=== PATIENT | male | born 1995 | race Caucasian/White ===

== ENCOUNTER 2020-08-16 13:51 | Emergency (ER) | payer SELFPAY ==
[2020-08-16] VITALS (11 sets, daily range): BP systolic 108–137; BP diastolic 55–92; PULSE 70–137; RESP 12–25; TEMP 36.8; O2SAT 94–99; BMI 36.9; BMI 32.8
--- NOTE | 2020-08-16 13:53 | XR_ITS ---
PROCEDURE: XR CHEST PORTABLE CLINICAL HISTORY: cough COMPARISON: No exams were available for comparison FINDINGS: The cardiomediastinal silhouette and pulmonary vascularity are within normal limits. The lungs are clear without infiltrates, suspicious nodules, or pleural effusions. No acute bony abnormalities. IMPRESSION: No acute findings. Dictated by: John Baldwin MD 08/16/2020 14:18 John Baldwin MD in [facility] 08/16/2020 14:18
--- NOTE | 2020-08-16 14:23 | PC.NURSE ---
Restraints removed at this time pt is laying in bed, given warm blankets, lights turned down for comfort. Pt mother at BS will continue to monitor
[2020-08-16 14:25] LABS: Chloride 104 mmol/L (98-107); Potassium 3.8 mmoL/L (3.5-5.1); Sodium 140 mmol/L (136-145)
[2020-08-16 14:27] LABS: Alanine Aminotransferase 60 U/L (12-78); Aspartate Amino Transferase 46 U/L (17-59); Blood Urea Nitrogen 8 mg/dl (9-20); Creatinine Clearance Estimated 166 mL/min (50-200); Estimated Glomerular Filt Rate 101 ml/min (>60); GFR (African American) 122 ML/MIN (>60)
[2020-08-16 14:28] LABS: Albumin Level 4.6 g/dl (3.5-5.0); Albumin/Globulin Ratio 1.4 (1.1-1.8); Alkaline Phosphatase 68 U/L (38-126); Anion Gap 13.8 mEq/L (5-15); Bilirubin,Total 0.8 mg/dl (0.2-1.3); Calcium 8.8 mg/dl (8.4-10.2); Carbon Dioxide 26 mmol/L (22.0-30.0); Globulin 3.3 g/dL (1.3-3.2); Glucose 97 mg/dl (74-100); Total Protein,Serum 7.9 g/dl (6.3-8.2)
[2020-08-16 14:29] LABS: Basophils # 0.1 K/mm3 (0-0.2); Basophils % 0.5 % (0.1-2.0); Eosinophils # 0.1 K/mm3 (0.0-0.4); Eosinophils % 1.5 % (0.1-12.0); Ethyl Alcohol < 10 mg/dl (0-10); Hematocrit 40.9 % (42.0-52.0); Hemoglobin 13.9 g/dL (14.1-18.0); Lymphocytes # 2.8 K/mm3 (0.7-4.5); Lymphocytes % 30.4 % (10-50); Mean Corpuscular Hemoglobin 29.2 pg (27.0-31.2); Mean Corpuscular Volume 85.9 fl (80-94); Mean Platelet Volume 8.5 fl (7.4-10.4); Monocytes # 0.5 K/mm3 (0.1-1.0); Monocytes % 5.1 % (1.7-9.3); Neutrophils # 5.7 K/mm3 (1.8-7.8); Neutrophils % 62.5 % (37.0-80.0); Platelet Count 367 K/mm3 (142-424); Red Blood Count 4.76 M/mm3 (4.60-6.20); Red Cell Distribution Width 13.9 % (11.5-17.5)
--- NOTE | 2020-08-16 14:30 | HMH.EDOD ---
ED Disposition Clinical Impression: Substance abuse Disposition: Home, Self-Care Condition on Discharge: Good Instructions: DI for Drug Overdose in Adults Referrals: Provider,MD Claudia [Primary Care Provider] - Shayna Laws MD [Referring] - - Critical Care Critical Care Time: No Attestation: On 08/16/20, the high probability of a clinically significant, sudden or life threatening deterioration of the following system(s) required my full and direct attention, intervention and personal management. The time I documented below is in addition to time spent performing reported procedures but includes the following listed in this critical care notation. Medical Decision Making - Medical Records Medical records reviewed: Yes: I reviewed the patient's medical records. - Gui Inquiry Pt receiving controlled substance: Yes Gui was queried for this patient: No Reason not queried -: Emergent pt cond-no time Risks and benefits of using a controlled substance: were discussed with pt by me Vital Signs: 08/16/20 13:51 08/16/20 14:08 08/16/20 14:30 Pulse Rate 128 H Pulse Rate [Apical] 137 H Respiratory Rate 16 24 25 H Blood Pressure 137/81 131/92 H Blood Pressure [Right Arm] 136/80 Blood Pressure Mean 98 100 Blood Pressure Mean [Right Arm] 98 Blood Pressure Source [Right Arm] Automatic Cuff Blood Pressure Position [Right Arm] Sitting 02 Sat by Pulse Oximetry 98 99 Oxygen Delivery Method Room Air 08/16/20 15:00 08/16/20 15:30 08/16/20 16:01 Pulse Rate Pulse Rate [Apical] Respiratory Rate 18 12 16 Blood Pressure 126/71 123/72 108/64 L Blood Pressure [Right Arm] Blood Pressure Mean 89 84 76 Blood Pressure Mean [Right Arm] Blood Pressure Source [Right Arm] Blood Pressure Position [Right Arm] 02 Sat by Pulse Oximetry Oxygen Delivery Method 08/16/20 16:30 08/16/20 17:00 08/16/20 18:18 Pulse Rate 100 H 98 H 93 H Pulse Rate [Apical] Respiratory Rate Blood Pressure 113/57 L 110/55 L 108/69 L Blood Pressure [Right Arm] Blood Pressure Mean 69 72 79 Blood Pressure Mean [Right Arm] Blood Pressure Source [Right Arm] Blood Pressure Position [Right Arm] 02 Sat by Pulse Oximetry 94 L 94 L 95 Oxygen Delivery Method 08/16/20 18:30 Pulse Rate 85 Pulse Rate [Apical] Respiratory Rate Blood Pressure 114/83 Blood Pressure [Right Arm] Blood Pressure Mean 93 Blood Pressure Mean [Right Arm] Blood Pressure Source [Right Arm] Blood Pressure Position [Right Arm] 02 Sat by Pulse Oximetry 96 Oxygen Delivery Method - Lab Data Lab Results 08/16/20 13:55: WBC 9.0, RBC 4.76, Hgb 13.9 L, Hct 40.9 L, MCV 85.9, MCH 29.2, MCHC 34.0, RDW 13.9, Plt Count 367, MPV 8.5, Neut % (Auto) 62.5, Lymph % (Auto) 30.4, [place] % (Auto) 5.1, Eos % (Auto) 1.5, Baso % (Auto) 0.5, Neut # (Auto) 5.7, Lymph # (Auto) 2.8, [place] # (Auto) 0.5, Eos # (Auto) 0.1, Baso # (Auto) 0.1 08/16/20 13:55: Sodium 140, Potassium 3.8, Chloride 104, Carbon Dioxide 26, Anion Gap 13.8, BUN 8 L, Creatinine 0.90, Estimated Creat Clear 166, Estimated GFR 101, Est GFR ( Amer) 122, Glucose 97, Calcium 8.8, Total Bilirubin 0.8, AST 46, ALT 60, Alkaline Phosphatase 68, Total Protein 7.9, Albumin 4.6, Globulin 3.3 H, Albumin/Globulin Ratio 1.4 08/16/20 13:55: Plasma/Serum Alcohol < 10 Result diagrams: 08/16/20 13:55 08/16/20 13:55 Orders (Tests/Meds): ED MEDICATIONS Discontinued Medications Generic Name Dose Route Start Last Admin Trade Name Freq PRN Reason Stop Dose Admin Sodium Chloride 1,000 mls @ 999 mls/hr 08/16/20 14:00 08/16/20 14:00 Sod Chlor 0.9% 1000ml Bag IV 08/16/20 15:00 999 mls/hr .Q1H1M MICHI Administration Lorazepam 2 mg 08/16/20 13:54 08/16/20 13:51 Lorazepam 2mg/Ml Vial IM 08/16/20 13:55 2 mg ONCE ONE Administration Ondansetron HCl 4 mg 08/16/20 13:53 08/16/20 14:00 Ondansetron 4mg/2ml Vial IV 08/16/20 13:54 4 mg ONCE ONE Adm
--- NOTE | 2020-08-16 16:26 | PC.NURSE ---
pt sleeping, pt mother remains at BS
--- NOTE | 2020-08-16 17:28 | PC.NURSE ---
attempted to wake pt up at this time, pt will arouse but will not wake up enough to sit up in bed. Notified ER MD will continue to monitor
== END 2020-08-16 19:11 | disposition home or self-care (01) ==
PROVIDERS: Emergency Provider Emergency Medicine
DX: T50.991A Poisoning by other drugs, medicaments and biological substances, accidental (unintentional), initial encounter (principal); Y92.009 Unspecified place in unspecified non-institutional (private) residence as the place of occurrence of the external cause; F17.210 Nicotine dependence, cigarettes, uncomplicated
CPT/HCPCS: 71045; 80053; 85025; 96365; 96372; 96375; 99283; J2405

== ENCOUNTER 2020-12-02 04:15 | Emergency (ER) | payer SELFPAY ==
[2020-12-02 04:17] VITALS: BP 166/55; PULSE 91; RESP 16; TEMP 36.9; O2SAT 98; BMI 30.4
[2020-12-02 05:00] VITALS: BP 133/86; PULSE 83; O2SAT 100
--- NOTE | 2020-12-02 05:58 | PC.NURSE ---
Lab called to obtain blood
[2020-12-02 06:00] VITALS: BP 140/83; PULSE 83; O2SAT 96
[2020-12-02 06:00] LABS: Coronavirus 19, PCR Not Detected (NotDetected); Influenza A, PCR Not Detected (NotDetected); Influenza B, PCR Not Detected (NotDetected)
[2020-12-02 06:08] LABS: Alanine Aminotransferase 28 U/L (12-78); Albumin Level 3.6 g/dl (3.5-5.0); Alkaline Phosphatase 62 U/L (38-126); Anion Gap 13.6 mEq/L (5-15); Aspartate Amino Transferase 43 U/L (17-59); Bilirubin,Total 0.4 mg/dl (0.2-1.3); Blood Urea Nitrogen 12 mg/dl (9-20); Calcium 8.8 mg/dl (8.4-10.2); Carbon Dioxide 27 mmol/L (22.0-30.0); Chloride 104 mmol/L (98-107); Creatinine Clearance Estimated 237 mL/min (50-200); Estimated Glomerular Filt Rate 162 ml/min (>60); GFR (African American) 196 ML/MIN (>60); Globulin 3.5 g/dL (1.3-3.2); Glucose 99 mg/dl (74-100); Potassium 3.6 mmoL/L (3.5-5.1); Sodium 141 mmol/L (136-145); Total Protein,Serum 7.1 g/dl (6.3-8.2)
[2020-12-02 06:13] LABS: C-Reactive Protein 57.6 mg/L (0-4)
[2020-12-02 06:16] LABS: Basophils # 0.1 K/mm3 (0-0.2); Eosinophils # 0.4 K/mm3 (0.0-0.4); Eosinophils % 6.6 % (0.1-12.0); Hemoglobin 12.5 g/dL (14.1-18.0); Lymphocytes % 33.9 % (10-50); Mean Corpuscular HGB Conc 32.2 g/dL (31.8-35.4); Mean Corpuscular Hemoglobin 28.8 pg (27.0-31.2); Mean Corpuscular Volume 89.4 fl (80-94); Mean Platelet Volume 9.2 fl (7.4-10.4); Monocytes # 0.5 K/mm3 (0.1-1.0); Monocytes % 8.2 % (1.7-9.3); Neutrophils % 50.4 % (37.0-80.0); Platelet Count 277 K/mm3 (142-424); Red Blood Count 4.36 M/mm3 (4.60-6.20); Red Cell Distribution Width 14.2 % (11.5-17.5)
[2020-12-02 06:27] LABS: Procalcitonin 0.804 ng/mL (0.0-2.0)
[2020-12-02 06:28] LABS: Lactic Acid < 0.5 mmol/L (0.7-2.1)
--- NOTE | 2020-12-02 06:35 | PC.NURSE ---
Spoke with Rolan at [facility] for Vanc dosing of 1500mg IV once
[2020-12-02 06:48] LABS: Erythrocyte Sedimentation Rate 26 mm/hr (0-15)
--- NOTE | 2020-12-02 06:52 | PC.NURSE ---
Pt refusing treatment with IV Vanc infusion stating he doesn't want ot wait 2 hours for it to finish. Pt signed AMA at this time.
--- NOTE | 2020-12-02 06:53 | HMH.EDSKAF ---
ED Disposition Clinical Impression: IVDU (intravenous drug user) Disposition: Left Against Medical Advice Condition on Discharge: Good Instructions: DI for Skin Abscess Additional Instructions: call pcp Referrals: Matheus Boateng MD [Primary Care Provider] - - Critical Care Critical Care Time: No Attestation: On 12/02/20, the high probability of a clinically significant, sudden or life threatening deterioration of the following system(s) required my full and direct attention, intervention and personal management. The time I documented below is in addition to time spent performing reported procedures but includes the following listed in this critical care notation. Medical Decision Making - Medical Records Medical records reviewed: Yes: I reviewed the patient's medical records. - Gui Inquiry Pt receiving controlled substance: No Vital Signs: 12/02/20 04:17 Temperature 98.4 F Temperature Source Oral Pulse Rate [Right Radial] 91 H Respiratory Rate 16 Blood Pressure [Right Arm] 166/55 H Blood Pressure Mean [Right Arm] 92 Blood Pressure Source [Right Arm] Automatic Cuff Blood Pressure Position [Right Arm] Sitting 02 Sat by Pulse Oximetry 98 Oxygen Delivery Method Room Air - Lab Data Lab results reviewed: Yes: I reviewed the patient's lab results. Lab Results 12/02/20 05:40: WBC 6.0, RBC 4.36 L, Hgb 12.5 L, Hct 39.0 L, MCV 89.4, MCH 28.8, MCHC 32.2, RDW 14.2, Plt Count 277, MPV 9.2, Neut % (Auto) 50.4, Lymph % (Auto) 33.9, [place] % (Auto) 8.2, Eos % (Auto) 6.6, Baso % (Auto) 1.0, Neut # (Auto) 3.0, Lymph # (Auto) 2.0, [place] # (Auto) 0.5, Eos # (Auto) 0.4, Baso # (Auto) 0.1, ESR 26 H 12/02/20 05:40: Sodium 141, Potassium 3.6, Chloride 104, Carbon Dioxide 27, Anion Gap 13.6, BUN 12, Creatinine 0.60 L, Estimated Creat Clear 237, Estimated GFR 162, Est GFR ( Amer) 196, Glucose 99, Calcium 8.8, Total Bilirubin 0.4, AST 43, ALT 28, Alkaline Phosphatase 62, C-Reactive Protein 57.6 H, Total Protein 7.1, Albumin 3.6, Globulin 3.5 H, Albumin/Globulin Ratio 1.0 L, Procalcitonin 0.804 12/02/20 05:40: Lactate < 0.5 L 12/02/20 05:45: SARS-CoV-2 (PCR) Not detected, Influenza A Untype (PCR) Not detected, Influenza Type B (PCR) Not detected Result diagrams: 12/02/20 05:40 12/02/20 05:40 Orders (Tests/Meds): ED MEDICATIONS Generic Name Dose Route Start Last Admin Trade Name Freq PRN Reason Stop Dose Admin Sodium Chloride 1,000 mls @ 999 mls/hr 12/02/20 04:45 Sod Chlor 0.9% 1000ml Bag IV 12/02/20 05:45 .Q1H1M MICHI Vancomycin HCl 1,500 mg/ 250 mls @ 125 mls/hr 12/02/20 06:34 12/02/20 06:37 Sodium Chloride IV 12/02/20 08:33 125 mls/hr ONCE ONE Administration ORDERS Category Date Time Status Blood Culture Stat Micro 12/02/20 05:40 Received Skin/Abscess/FB HPI - General Chief complaint: Skin/Abscess/Foreign Body Stated complaint: ? spider bite right arm,nausea Time Seen by Provider: 12/02/20 05:00 Mode of Arrival: Ambulatory Source of Information: Patient, Medical Record Limitations: No Limitations Description of Symptoms (Recalled from ER Triage Doc. by RN): Pt reports pain and swelling to right forearm for the past 2 weeks. Pt is IV drug user and has multiple open wounds to BUE. Right forearm is hot to touch and swollen. He denies fevers. Denies N/V/D. Denies SOA or cp. - History of Present Illness HPI narrative: ivdu with infected area to upper ext MD complaint: abscess/boil Onset (ago): day(s) Tetanus up to date: unsure Location: RUE Severity: moderate Context: IVDA Associated symptoms: denies other symptoms Treatments prior to arrival: none - Related Data Home Medications Medication Instructions Recorded Confirmed No Known Home Medications 12/02/20 12/02/20 Allergies Allergy/AdvReac Type Severity Reaction Status Date / Time codeine Allergy Verified 04/16/18 20:53 Penicillins Allergy Verified 04/16/18 20:53 Sulfa (Sulfonamide Allerg
[2020-12-02 06:54] VITALS: BP 136/86; PULSE 90; RESP 18; TEMP 37; O2SAT 98
--- NOTE | 2020-12-02 06:57 | PC.NURSE ---
Vancomycin dosing given by [facility] @ 0630
== END 2020-12-02 06:57 | disposition left against medical advice (07) ==
PROVIDERS: Emergency Provider Emergency Medicine; PCP Internal Medicine Adolescent Medicine
DX: L02.413 Cutaneous abscess of right upper limb (principal); F19.90 Other psychoactive substance use, unspecified, uncomplicated; F17.210 Nicotine dependence, cigarettes, uncomplicated; Z20.822 Contact with and (suspected) exposure to COVID-19
CPT/HCPCS: 36415; 80053; 83605; 84145; 85025; 85651; 86140; 87040; 96365; 96367; 99283; J3370; U0003